=== PATIENT | female | born 1995 | race American Indian/Alaskan Native ===

== ENCOUNTER 2019-02-12 12:44 | Emergency (ER) | payer BC ==
[2019-02-12 12:53] VITALS: BMI 36.1
--- NOTE | 2019-02-12 13:26 | ED PDOC ---
Arrival/HPI - General Chief Complaint: Finger,Hand,&Wrist Time Seen by Provider: 02/12/19 12:54 Historian: Patient - History of Present Illness Narrative History of Present Illness (Text): 02/12/19 13:29 23 y/o female with no significant PMH presents to the ED for ring removal from left 3rd digit. Pt states she put the ring on last night and when she awoke this morning she was unable to remove the ring. Pt tried to apply soap and floss to remove the ring without success. States the digit is beginning to feel numb. Denies trauma, weakness, open wounds, or any other associated symptoms. Past Medical History - Provider Review Nursing Documentation Reviewed: Yes - Infectious Disease Hx of Infectious Diseases: None - Reproductive Menopause: No - Psychiatric Hx Substance Use: No - Anesthesia Hx Anesthesia: No Hx Anesthesia Reactions: No Hx Malignant Hyperthermia: No Family/Social History - Physician Review Nursing Documentation Reviewed: Yes Family/Social History: No Known Family HX Smoking Status: Never Smoked Hx Alcohol Use: No Hx Substance Use: No Allergies/Home Meds Allergies/Adverse Reactions: Allergies No Known Allergies Allergy (Verified 02/12/19 13:34) Physical Exam Vital Signs Reviewed: Yes Temperature: Afebrile Blood Pressure: Normal Pulse: Regular Respiratory Rate: Normal Appearance: Positive for: Well-Appearing, Non-Toxic, Comfortable Pain Distress: None Mental Status: Positive for: Alert and Oriented X 3 - Systems Exam Head: Present: Atraumatic, Normocephalic Pupils: Present: PERRL Extroacular Muscles: Present: EOMI Conjunctiva: Present: Normal Mouth: Present: Moist Mucous Membranes Neck: Present: Normal Range of Motion Upper Extremity: Present: Normal ROM, NORMAL PULSES, Swelling (distal left 3rd digit), Neurovascularly Intact, Capillary Refill < 2s, Other (ring on proximal phalanx of left third digit). No: Cyanosis, Edema, Temperature Abnormalties Lower Extremity: Present: Normal ROM Neurological: Present: GCS=15, CN II-XII Intact, Speech Normal Skin: Present: Warm, Dry, Normal Color. No: Rashes Psychiatric: Present: Alert, Oriented x 3, Normal Insight, Normal Concentration Medical Decision Making ED Course and Treatment: 02/12/19 13:23 Initial Plan: * Ring removal * Ice pack Ring removed from left hand 3rd digit using ring cutter without difficulty. Patient tolerated procedure well without complication. Reports resolution of numbness with ring removal. Advised supportive care and PMD/hand followup. Diagnostic testing results and plan of care discussed with patient. Strict instructions given regarding importance of followup, and signs/symptoms to return to ER including numbness, weakness, paresthesias, continued pain, or any other new/worsening symptoms. Pt verbalized understanding of discussion. Patient is A&Ox3, ambulating with steady gait, with vital signs stable for discharge. Disposition/Present on Arrival - Present on Arrival Any Indicators Present on Arrival: No History of DVT/PE: No History of Uncontrolled Diabetes: No Urinary Catheter: No History of Decub. Ulcer: No History Surgical Site Infection Following: None - Disposition Have Diagnosis and Disposition been Completed?: Yes Diagnosis: Ring or other jewelry causing external constriction, initial encounter Disposition: HOME/ ROUTINE Disposition Time: 13:28 Condition: IMPROVED Additional Instructions: Ice injured finger 15 minutes at a time every hour Followup with primary within 2 days Return to ER with any new/worsening symptoms Referrals: [facility] [place] - Follow up with primary Alec Henson MD [Staff Provider] - Follow up with primary Joanna Campbell MD [Medical Doctor] - Follow up with primary Forms: [employer] [employer] ([place]ic), WORK NOTE
[2019-02-12 13:37] VITALS: BP 112/88; PULSE 55; RESP 18; O2SAT 99
== END 2019-02-12 13:39 | disposition home or self-care (01) ==
LOC: ED 12:44
DX: S60.443A External constriction of left middle finger, initial encounter (principal); W49.04XA Ring or other jewelry causing external constriction, initial encounter

== ENCOUNTER 2019-03-09 09:15 | Emergency (ER) | payer BC ==
[2019-03-09 09:16] VITALS: BMI 36.1
[2019-03-09 09:28] VITALS: BP 134/66; PULSE 77; RESP 17; TEMP 98; O2SAT 98
--- NOTE | 2019-03-09 09:35 | ED PDOC ---
Arrival/HPI - General Chief Complaint: Finger,Hand,&Wrist Time Seen by Provider: 03/09/19 09:17 Historian: Patient - History of Present Illness Narrative History of Present Illness (Text): 10:02 23 y/o female with no significant PMH presents to the ED for ring removal from left hand 2nd digit. Pt states she put the ring on last night and when she awoke this morning she was unable to remove the ring. Pt tried to apply soap and floss to remove the ring without success. Denies trauma, weakness, open wounds, numbness, weakness, paresthesias, or any other associated symptoms. Past Medical History - Provider Review Nursing Documentation Reviewed: Yes - Infectious Disease Hx of Infectious Diseases: None - Psychiatric Hx Substance Use: No - Anesthesia Hx Anesthesia: No Hx Anesthesia Reactions: No Hx Malignant Hyperthermia: No Family/Social History - Physician Review Nursing Documentation Reviewed: Yes Family/Social History: No Known Family HX Smoking Status: Never Smoked Hx Alcohol Use: No Hx Substance Use: No Allergies/Home Meds Allergies/Adverse Reactions: Allergies No Known Allergies Allergy (Verified 02/12/19 13:34) Review of Systems - Review of Systems Respiratory: Normal. absent: SOB, Cough Cardiovascular: Normal. absent: Chest Pain, Palpitations Gastrointestinal: Normal. absent: Nausea, Vomiting Genitourinary Female: Normal. absent: Urine Output Changes Musculoskeletal: Other (ring stuck on left 2nd digit) Skin: absent: Rash, Skin Lesions, Laceration, Abscess, Ulcer, Cellulitis Neurological: Normal. absent: Headache, Dizziness, Focal Weakness Physical Exam Vital Signs Reviewed: Yes Vital Signs Temp Pulse Resp BP Pulse Ox 03/09/19 09:22 98 F 77 17 134/66 98 Temperature: Afebrile Blood Pressure: Normal Pulse: Regular Respiratory Rate: Normal Appearance: Positive for: Well-Appearing, Non-Toxic, Comfortable Pain Distress: None Mental Status: Positive for: Alert and Oriented X 3 - Systems Exam Head: Present: Atraumatic, Normocephalic Pupils: Present: PERRL Extroacular Muscles: Present: EOMI Conjunctiva: Present: Normal Mouth: Present: Moist Mucous Membranes Neck: Present: Normal Range of Motion Respiratory/Chest: No: Respiratory Distress, Accessory Muscle Use Abdomen: No: Peritoneal Signs Upper Extremity: Present: Normal ROM, NORMAL PULSES, Swelling (distal 2nd digit left hand), Neurovascularly Intact, Capillary Refill < 2s, Other (thin gold ring on proximal phalanx of left hand 2nd digit with mild distal digit swelling). No: Cyanosis, Edema, Temperature Abnormalties Lower Extremity: Present: Normal ROM Neurological: Present: GCS=15, CN II-XII Intact, Speech Normal Skin: Present: Warm, Dry, Normal Color. No: Rashes Psychiatric: Present: Alert, Oriented x 3, Normal Insight, Normal Concentration, Normal Affect, Normal Mood Medical Decision Making ED Course and Treatment: 09:29 Initial Plan: * Ring removal Ring removed using ring cutter without complication. Pt tolerated procedure well. Neurovascular exam unchanged, continues to have full sensation, strength, and distal pulses. Ring given back to patient. Diagnostic testing results and plan of care discussed with patient. Strict instructions given regarding importance of followup, and signs/symptoms to return to ER including numbness, weakness, paresthesias, finger pain, or any other new/worsening symptoms. Pt verbalized understanding of discussion. Patient is A&Ox3, ambulating with steady gait, with vital signs stable for discharge. Procedures - Time-Out Type of Procedure: Ring Removal Site of Procedure: Left Hand 2nd Digit Correct Patient (with visual ID + MR# on ID Band): Yes Correct Procedure: Yes PA/Tech: Motter - Additional Procedures Progress: Thin gold ring removed from left hand 2nd digit proximal phalanx using GEM ring cutter without difficulty or complication. Neurovascular exam shows distal pulses 2/2, sensation intact, and full strength bilaterally both before and after procedure. Ring given back to patient after procedure. Disposition/Present on Arrival - Present on Arrival Any Indicators Present on Arrival: No History of DVT/PE: No History of Uncontrolled Diabetes: No Urinary Catheter: No History of Decub. Ulcer: No History Surgical Site Infection Following: None - Disposition Have Diagnosis and Disposition been Completed?: Yes Diagnosis: Ring or other jewelry causing external constriction, initial encounter Disposition: HOME/ ROUTINE Disposition Time: 09:28 Patient Plan: Discharge Condition: IMPROVED Additional Instructions: Followup with primary doctor within 2 days Return to ER with any new/worsening symptoms Referrals: Joanna Campbell MD [Medical Doctor] - Follow up with primary [facility] at [facility] – [place]Outside] - Follow up with primary Forms: [employer] ([place]an), WORK NOTE
== END 2019-03-09 09:32 | disposition home or self-care (01) ==
LOC: ED 09:15
DX: S60.441A External constriction of left index finger, initial encounter (principal); W49.04XA Ring or other jewelry causing external constriction, initial encounter